=== PATIENT | male | born 1985 | race Two or more races ===

== ENCOUNTER → 2024-09-01 | Outpatient (CLI) | payer OTHER ==
--- NOTE | 2024-09-01 10:01 | DVH ---
EXAM: CT HEAD WITHOUT CONTRAST INDICATION: FOLLOW UP ON PRIOR CT TECHNIQUE: CT of the head without intravenous contrast. Coronal and sagittal reformatted images are submitted. Radiation Dose : 1. Head: CT Dose: CTDI volume is 55.76 mGy. Dose-length product is 893.87 mGy*cm The dose indicators for CT are the volume Computed Tomography (CT) Dose Index (CTDIvol) and the Dose Length Product (DLP), and are measured in units of mGy and mGy-cm, respectively. These indicators are not patient dose, but values generated from the CT scanner acquisition factors. The report includes radiation exposure data for exposures received during this examination. All CT scans at this medical facility are performed using dose modulation techniques as appropriate to a performed exam including the following: Automated exposure control was utilized; adjustment of the MA and/or KV according to patient size; and use of iterative reconstruction technique. COMPARISON: None FINDINGS: There is no evidence of acute intracranial hemorrhage, extra-axial collection, mass effect, midline s hift, herniation or hydrocephalus. There is coarse calcification in the right frontal and parietal lobe. Calcification in the head of t he caudate nucleus. These are compatible with sequelae of prior neurocysticercosis. The ventricles, sulci and cisterns are age appropriate. The burkett-white differentiation is intact. The visualized paranasal sinuses and mastoid air cells are clear. No depressed calvarial fracture. The surrounding soft tissues are unremarkable. IMPRESSION: 1. No evidence of acute intracranial abnormality. 2. 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
== END | disposition home or self-care (01) ==
LOC: XYW 09:38
PROVIDERS: ATTEND Personal Emergency Response Attendant
DX: G93.89 Other specified disorders of brain (principal); R22.0 Localized swelling, mass and lump, head
CPT/HCPCS: 70450